=== PATIENT | male | born 1990 | race Caucasian/White ===

== ENCOUNTER 2017-12-13 11:55 | Emergency (ER) | payer MEDICAID ==
[~2017-12-13] VITALS: Ht 162.6 cm; Wt 65.0 kg
[2017-12-13 12:03] VITALS: BP 108/63
== END 2017-12-13 16:00 | disposition left against medical advice (07) ==
LOC: ER 15:47
DX: Z53.21 Procedure and treatment not carried out due to patient leaving prior to being seen by health care provider (principal)

== ENCOUNTER 2018-03-15 01:40 | Emergency (ER) | payer MEDICAID ==
[~2018-03-15] VITALS: Ht 172.7 cm; Wt 68.0 kg
[2018-03-15 01:47] VITALS: BP 138/80
== END 2018-03-15 04:34 | disposition left against medical advice (07) ==
LOC: ER 01:40
DX: M54.9 Dorsalgia, unspecified (principal); Z53.21 Procedure and treatment not carried out due to patient leaving prior to being seen by health care provider

== ENCOUNTER 2018-05-30 13:21 | Emergency (ER) | payer MEDICAID ==
[~2018-05-30] VITALS: Ht 162.6 cm; Wt 64.0 kg
[2018-05-30] MEDS ORDERED: METOCLOPRAMIDE HCL 10MG TABLET PO ONE (16:30)
[2018-05-30] MEDS ORDERED: IBUPROFEN 600MG TABLET PO ONE (16:30)
[2018-05-30 17:20] VITALS: BP 130/76
== END 2018-05-30 17:30 | disposition home or self-care (01) ==
LOC: ER 13:21
DX: M76.892 Other specified enthesopathies of left lower limb, excluding foot (principal); G43.909 Migraine, unspecified, not intractable, without status migrainosus; F12.10 Cannabis abuse, uncomplicated; Z87.891 Personal history of nicotine dependence
CPT/HCPCS: 99283; J8597; Z7610

== ENCOUNTER 2018-12-02 14:58 | Emergency (ER) | payer MEDICAID, OTHER ==
[~2018-12-02] VITALS: Ht 175.3 cm; Wt 68.0 kg
[2018-12-02] MEDS ORDERED: MORPHINE SULFATE 4 MG/ML CPJ (NOT FOR IM USE) IV ONE (16:00)
[2018-12-02] MEDS ORDERED: ACETAMINOPHEN 500MG TABLET PO ONE (16:00)
[2018-12-02 17:30] VITALS: BP 137/80
== END 2018-12-02 18:02 | disposition home or self-care (01) ==
LOC: ER 14:58
DX: M25.552 Pain in left hip (principal)
CPT/HCPCS: 71045; 73000; 73502; 96374; 99283; J2270; Z7610